=== PATIENT | female | born 1990 | race African-American/Black ===

== ENCOUNTER 2017-07-18 18:19 | Emergency (ER) | payer BC ==
[~2017-07-18 18:19] MED LIST: DICY1TAB26 PO; ZOFR4TAB3 SL
[2017-07-18 18:34] VITALS: BP 110/69; PULSE 80; RESP 20; TEMP 98.2; O2SAT 100
[2017-07-18] MEDS ORDERED: OMEP20TA PO (19:35)
--- NOTE | 2017-07-18 19:35 | PD ---
HPI Chief Complaint: Cold / Flu Symptoms Time Seen by Provider: 19:21 Travel History International Travel<30 days: No Contact w/Intl Traveler<30days: No Traveled to known affect area: No History of Present Illness HPI 27-year-old female presents to the emergency room for evaluation of nonproductive cough, congestion, sore throat for the past 2 weeks. Patient states her symptoms seem to be improving but today she developed some chest pain. It was substernal without radiation. No associated symptoms. It lasted one hour. States it was sharp in nature. Symptoms resolved and she feels fine. She is also requesting a note for work. She denies fever, chills, nausea , and vomiting. Patient has no family history of cardiac or lung disease. She does not smoke. No chronic medical conditions and takes no medications. PFSH Past Medical History Blood Disorders: No Anxiety: No Depression: No Cancer: No Cardiovascular Problems: No Diminished Hearing: No Endocrine: No Genitourinary: No Immune Disorder: No Musculoskeletal: No Neurologic: No Psychiatric: No Reproductive: No Respiratory: No Immunizations Current: Yes ?: Unknown LMP: June : 1 Para: 0 Miscarriage: 0 : 1 Past Surgical History AICD: No Arteriovenous Shunt: No Ear Surgery: No Endocrine Surgery: No Eye Surgery: No Gynecologic Surgery: No Insulin Pump: No Joint Replacement: No Oral Surgery: No Pacemaker: No Other Surgery: Yes (JAW SURGERY) Social History Alcohol Use: Yes ("SOCIALLY") Tobacco Use: No Substance Use: No Allergies-Medications (Allergen,Severity, Reaction): Coded Allergies: No Known Allergies (Verified , 03/11/16) Reported Meds & Prescriptions Reported Meds & Active Scripts Active Bentyl (Dicyclomine HCl) 20 Mg Tab 20 Mg PO Q8 Zofran ODT (Ondansetron HCl) 4 Mg Tab 4 Mg SL Q6H PRN FOR NAUSEA/VOMITING Review of Systems Except as stated in HPI: all other systems reviewed are Neg Physical Exam Narrative GENERAL: Well-nourished, well-developed female in no acute distress. Afebrile. Ambulatory. SKIN: Focused skin assessment warm/dry. HEAD: Normocephalic. EYES: No scleral icterus. No injection or drainage. EARS: Bilateral pinnae and external canals appear within normal limits. Bilateral tympanic membranes without erythema, dullness or perforation. ENT: Mucosa pink and moist. Moderate erythema without edema or exudates. No uvular edema. No uvular, palatal, or tonsillar deviation. Airway patent. Nasal turbinates appear normal without nasal blood, purulent drainage or septal hematoma. NECK: Supple, trachea midline. No JVD or lymphadenopathy. CARDIOVASCULAR: Regular rate and rhythm without murmurs, gallops, or rubs. RESPIRATORY: Breath sounds equal bilaterally. No accessory muscle use. Data Data Last Documented VS Vital Signs Date Time Temp Pulse Resp B/P (MAP) Pulse Ox O2 Delivery O2 Flow Rate FiO2 07/18/17 18:34 98.2 80 20 110/69 (83) 100 MDM Medical Decision Making Medical Screen Exam Complete: Yes Emergency Medical Condition: Yes Medical Record Reviewed: Yes Differential Diagnosis URI, GERD, costochondritis, muscle spasm, chest wall pain Narrative Course 27-year-old female presents to the emergency room for evaluation of upper respiratory infection symptoms for the past 2 weeks. Patient had associated substernal chest pain that lasted one hour without radiation which is what brought her to the emergency room. States it has since resolved and she feels much better. Physical exam reveals no increased work of breathing. Lungs sounds clear and equal bilaterally. Throat is moderately erythematous without exudates or edema. Patient is afebrile and well-appearing. She was offered EKG and chest x-ray but did not want to wait for testing. Immediately after being offered testing, patient asked for a work note. I have very low suspicion for cardiac etiology given that she is otherwise healthy without any risk factors. Patient could have costochondritis from recent URI or GERD. She will be discharged with prescription for Prilosec and told to follow up with a primary care physician or return for worsening symptoms. She understands and agrees to plan. Diagnosis Primary Impression: Upper respiratory infection Qualified Codes: J00 - Acute nasopharyngitis [common cold] Referrals: Primary Care Physician Additional Instructions: Rest and drink plenty of fluids. Prilosec as directed. Follow-up with a primary care physician. Return to the emergency room for worsening symptoms. Disposition: 01 DISCHARGE HOME Condition: Stable Monica Saha Jul 18, 2017 19:35
== END 2017-07-18 20:01 | disposition home or self-care (01) ==
LOC: PHEFT 18:19
DX: J00 Acute nasopharyngitis [common cold] (principal)
CPT/HCPCS: 99283

== ENCOUNTER 2017-11-30 07:30 | Emergency (ER) | payer BC ==
[~2017-11-30] VITALS: Ht 162.6 cm; Wt 65.0 kg
[~2017-11-30 07:30] MED LIST changes: +OMEP20TA93 PO
[2017-11-30 07:33] VITALS: BP 109/82; PULSE 84; RESP 16; TEMP 98; O2SAT 100
--- NOTE | 2017-11-30 07:42 | PD ---
HPI Chief Complaint: Cold / Flu Symptoms Time Seen by Provider: 07:37 Travel History International Travel<30 days: No Contact w/Intl Traveler<30days: No History of Present Illness HPI 27yo F with no PMH presents to the ED with c/o generalized muscle aches for 5 days. Also with cough for about 3 days. Associated with nasal congestion. Pt works as a CLERICAL WAREHOUSE WORKER at [employer] and was sent home because she was sent home because she was coughing too much. Denies any fever, chest pain, sob, n/v, abdominal pain, focal weakness or numbness. Did not take any medications at home. PFSH Past Medical History Blood Disorders: No Anxiety: No Depression: No Cancer: No Cardiovascular Problems: No Diminished Hearing: No Endocrine: No Genitourinary: No Immune Disorder: No Musculoskeletal: No Neurologic: No Psychiatric: No Reproductive: No Respiratory: No Immunizations Current: Yes : 1 Para: 0 Miscarriage: 0 : 1 Past Surgical History AICD: No Arteriovenous Shunt: No Ear Surgery: No Endocrine Surgery: No Eye Surgery: No Gynecologic Surgery: No Insulin Pump: No Joint Replacement: No Oral Surgery: No Pacemaker: No Other Surgery: Yes (JAW SURGERY) Social History Alcohol Use: Yes ("SOCIALLY") Tobacco Use: No Substance Use: No Allergies-Medications (Allergen,Severity, Reaction): Coded Allergies: No Known Allergies (Verified , 03/11/16) Reported Meds & Prescriptions Reported Meds & Active Scripts Active Robitussin Lingering Cold (Dextromethorphan HBr) 15 Mg Cap 30 Mg PO Q8H PRN 5 Days Tylenol (Acetaminophen) 325 Mg Tab 650 Mg PO Q6H PRN Omeprazole 20 Mg Tab 20 Mg PO DAILY Bentyl (Dicyclomine HCl) 20 Mg Tab 20 Mg PO Q8 Zofran ODT (Ondansetron HCl) 4 Mg Tab 4 Mg SL Q6H PRN FOR NAUSEA/VOMITING Review of Systems Except as stated in HPI: all other systems reviewed are Neg Physical Exam Narrative GENERAL: 27yo F not in distress. SKIN: Focused skin assessment warm/dry. HEAD: Atraumatic. Normocephalic. EYES: Pupils equal and round. No scleral icterus. No injection or drainage. ENT: Throat: Clear. Uvula midline. No tonsillar exudate. NECK: Trachea midline. No JVD. CARDIOVASCULAR: Regular rate and rhythm. No murmur appreciated. RESPIRATORY: No accessory muscle use. Clear to auscultation. Breath sounds equal bilaterally. GASTROINTESTINAL: Abdomen soft, non-tender, nondistended. MUSCULOSKELETAL: No obvious deformities. No clubbing. No cyanosis. No edema. NEUROLOGICAL: Awake and alert. No obvious cranial nerve deficits. Motor grossly within normal limits. Normal speech. PSYCHIATRIC: Appropriate mood and affect; insight and judgment normal. Data Data Last Documented VS Vital Signs Date Time Temp Pulse Resp B/P (MAP) Pulse Ox O2 Delivery O2 Flow Rate FiO2 11/30/17 08:20 11/30/17 07:33 98.0 84 16 100 Orders Orders Influenzae A/B Antigen (11/30/17 07:40) Acetaminophen (Tylenol) (11/30/17 07:45) Guaifen-Cod 200-20 Mg/10ml Liq (Robituss (11/30/17 07:45) Ed Discharge Order (11/30/17 08:18) MDM Medical Decision Making Medical Screen Exam Complete: Yes Emergency Medical Condition: Yes Differential Diagnosis Influenza vs. URI vs. bronchitis Narrative Course 27yo well appearing female here with flu like symptoms. Will check influenza and give acetaminophen and robitussin. Influenza negative. Pt reevaluated after acetaminophen and robitussin and feels better. Pt requesting work note. Lungs are clear and saturating at 100% RA. Return precautions given. Diagnosis Primary Impression: Flu-like symptoms Patient Instructions: General Instructions Departure Forms: Tests/Procedures, Work Release Enter return to work date: Dec 02, 2017 Additional Instructions: Please follow up with your primary care physician in 2-3 days. Return to the ED if symptoms worsen. Med/Other Pt SpecificInfo: Prescription(s) given Scripts Dextromethorphan (Robitussin Lingering Cold) 15 Mg Cap 30 MG PO Q8H Y for COUGH for 5 Days, #30 CAP 0 Refills Prov: Waleska Grajeda DO 11/30/17 Acetaminophen (Tylenol) 325 Mg Tab 650 MG PO Q6H Y for PAIN SCALE 1 TO 4, #20 TAB 0 Refills Prov: Waleska Grajeda DO 11/30/17 Disposition: 01 DISCHARGE HOME Condition: Stable Waleska Grajeda DO Nov 30, 2017 07:42
[2017-11-30] MEDS ORDERED: guaiFENesin/CODEINE SYRUP 200 MG/20 MG/10 ML CUP PO ONE (07:45)
[2017-11-30] MEDS ORDERED: ACETAMINOPHEN 325 MG TAB PO ONE (07:45)
[2017-11-30] MEDS ORDERED: TYLE325T PO (08:18)
[2017-11-30] MEDS ORDERED: ROBICAP2 PO (08:18)
== END 2017-11-30 08:26 | disposition home or self-care (01) ==
LOC: PHED 07:30
DX: J11.1 Influenza due to unidentified influenza virus with other respiratory manifestations (principal); R09.81 Nasal congestion
CPT/HCPCS: 87804; 99283